=== PATIENT | female | born 1985 | race Two or more races ===

== ENCOUNTER 2025-01-22 13:29 | Outpatient (CLI) | payer OTHER | END 2025-01-22 13:35 | disposition home or self-care (01) | LOC: PRENATAL 13:29 | PROVIDERS: ATTEND Obstetrics & Gynecology Maternal & Fetal Medicine | DX: O44.00 Complete placenta previa NOS or without hemorrhage, unspecified trimester (principal); O99.280 Endocrine, nutritional and metabolic diseases complicating pregnancy, unspecified trimester; O09.519 Supervision of elderly primigravida, unspecified trimester; Z3A.26 26 weeks gestation of pregnancy ==

== ENCOUNTER 2025-03-24 12:46 | Outpatient (CLI) | payer OTHER | END 2025-03-24 12:47 | disposition home or self-care (01) | LOC: PRENATAL 12:46 | PROVIDERS: ATTEND Obstetrics & Gynecology Maternal & Fetal Medicine | DX: O26.843 Uterine size-date discrepancy, third trimester (principal); O36.8130 Decreased fetal movements, third trimester, not applicable or unspecified; O99.283 Endocrine, nutritional and metabolic diseases complicating pregnancy, third trimester; O09.513 Supervision of elderly primigravida, third trimester; O32.9XX0 Maternal care for malpresentation of fetus, unspecified, not applicable or unspecified ==